=== PATIENT | male | born 1990 | race African-American/Black ===

== ENCOUNTER 2019-06-29 10:08 | Emergency (ER) | payer OTHER | END 2019-06-29 10:22 | disposition left against medical advice (07) | LOC: ER 10:08 | DX: K08.89 Other specified disorders of teeth and supporting structures (principal); Z53.21 Procedure and treatment not carried out due to patient leaving prior to being seen by health care provider ==

== ENCOUNTER 2019-12-06 12:29 | Emergency (ER) | payer OTHER ==
[~2019-12-06] VITALS: Ht 175.3 cm; Wt 74.8 kg
[2019-12-06 13:10] LABS: HEMATOCRIT 41.6 % (42.0-52.0); HEMOGLOBIN 13.9 gm/dL (14.0-18.0); MCH 30.2 pg (26.0-34.0); MCHC 33.3 g/dL (28.0-37.0); MCV 90.4 fL (80.0-100.0); PLATELET COUNT 326 thou/uL (150-400); RBC 4.61 mil/uL (4.50-6.00); RDW 13.9 % (10.5-14.5); WBC 9.9 thou/uL (4.0-11.0)
[2019-12-06 13:26] LABS: APTT 33.8 Seconds (24.5-32.8); D-DIMER 0.52 ug/mLFEU (0.19-0.50); PROTIME 10.4 Seconds (9.3-11.4)
[2019-12-06 13:31] LABS: ANION GAP 10 mmol/L (7-16); BUN 11 mg/dL (7-18); CALCIUM 9.2 mg/dL (8.5-10.1); CHLORIDE 100 mmol/L (98-107); CO2 27 mmol/L (21-32); CREATININE 1.4 mg/dL (0.7-1.3); GLUCOSE 126 mg/dL (74-106); SODIUM 137 mmol/L (136-145)
[2019-12-06 13:41] LABS: ALBUMIN 3.5 g/dL (3.4-5.0); LIPASE 134 U/L (73-393); SGOT 34 U/L (15-37); SGPT 59 U/L (30-65); TOTAL BILIRUBIN 0.3 mg/dL (0.2-1.0); TOTAL PROTEIN 7.7 g/dL (6.4-8.2); TROPONIN-I <0.06 ng/mL (<0.06)
[2019-12-06] MEDS ORDERED: PREDNISONE 20 M20 MG PO (14:51)
[2019-12-06 14:52] LABS: ABSOLUTE NEUTROPHILS 6.7 thou/uL (1.4-8.2); ATYPICAL LYMPHS 2 %
[2019-12-06 15:02] VITALS: BP 124/68
--- NOTE | 2019-12-06 23:00 | EKG ---
[facility] [place] [address] ELECTROCARDIOGRAM REPORT Name: JANA DIAZ Room #: [facility]#: [id number] Admission: 12/06/19 Attend Phys: Discharge: 12/06/19 Date of : 86 Report #: [id number] THIS REPORT FOR: cc: LOLA - [place] family physician/PCP FAM - No family physician/PCP Suresh Marrero MD [facility] THIS REPORT FOR: //name// [facility] ED Test Date: 2019-12-06 Test Time: 12:47:05 Pat Name: JANA DIAZ Department: Room: Gender: Fx Artist: : 1990 Requested By: Shaina Florez Order Number: [id number] MD: Suresh Marrero Measurements Intervals [place] Rate: 97 P: 69 IN: 130 QRS: 43 QRSD: 73 T: 35 QT: 321 QTc: 408 Interpretive Statements Sinus rhythm No significant abnormality No previous ECG available for comparison Electronically Signed On 12-06-2019 23:00:32 CDT by Suresh Marrero [email or web address] <ELECTRONICALLY SIGNED> By: Suresh Marrero MD, [facility] 12/06/19 2300 1247 [id number] Suresh Marrero MD, FACC /EPI
[2019-12-07] MEDS ORDERED: DOXYCYCLINE 10100 MG PO (14:12)
== END 2019-12-06 15:02 | disposition home or self-care (01) ==
LOC: ER 12:29
PROVIDERS: Physician Assistant
DX: R09.1 Pleurisy (principal); N28.9 Disorder of kidney and ureter, unspecified; J45.909 Unspecified asthma, uncomplicated; F17.210 Nicotine dependence, cigarettes, uncomplicated

== ENCOUNTER 2019-12-07 12:08 | Emergency (ER) | payer OTHER ==
[~2019-12-07] VITALS: Ht 175.3 cm; Wt 74.8 kg
[~2019-12-07 12:08] MED LIST: PREDNISONE 20 M20 MG PO
[2019-12-07 12:59] LABS: HEMATOCRIT 42.6 % (42.0-52.0); MCH 29.6 pg (26.0-34.0); MCHC 32.9 g/dL (28.0-37.0); PLATELET COUNT 327 thou/uL (150-400); RBC 4.74 mil/uL (4.50-6.00); RDW 13.6 % (10.5-14.5); WBC 8.9 thou/uL (4.0-11.0)
[2019-12-07 13:05] LABS: ANION GAP 8 mmol/L (7-16); BUN 11 mg/dL (7-18); CALCIUM 8.8 mg/dL (8.5-10.1); CHLORIDE 102 mmol/L (98-107); CO2 27 mmol/L (21-32); CREATININE 1.4 mg/dL (0.7-1.3); GLUCOSE 135 mg/dL (74-106); SODIUM 137 mmol/L (136-145)
[2019-12-07 13:10] LABS: TROPONIN-I <0.06 ng/mL (<0.06)
[2019-12-07 13:54] LABS: ABSOLUTE NEUTROPHILS 6.8 thou/uL (1.4-8.2)
[2019-12-07 13:55] LABS: ANISOCYTOSIS SLIGHT
[2019-12-07 14:09] LABS: URINE BILIRUBIN NEGATIVE (Negative); URINE BLOOD NEGATIVE (Negative); URINE CLARITY CLEAR; URINE COLOR YELLOW; URINE GLUCOSE-RANDOM* NEGATIVE (Negative); URINE KETONES NEGATIVE (Negative); URINE LEUKOCYTES-REFLEX NEGATIVE (Negative); URINE NITRITE-REFLEX NEGATIVE (Negative); URINE PROTEIN (DIPSTICK) NEGATIVE (Negative); URINE SPECIFIC GRAVITY 1.025 (1.005-1.035); URINE UROBILINOGEN 0.2 E.U./dl (0.2-1.0)
[2019-12-07] MEDS ORDERED: DOXYCYCLINE 10100 MG PO (14:12)
[2019-12-07 14:38] VITALS: BP 108/61
== END 2019-12-07 14:38 | disposition home or self-care (01) ==
LOC: ER 12:08
PROVIDERS: Emergency Medicine
DX: R59.0 Localized enlarged lymph nodes (principal); L02.211 Cutaneous abscess of abdominal wall; J45.909 Unspecified asthma, uncomplicated; F17.210 Nicotine dependence, cigarettes, uncomplicated; Z79.899 Other long term (current) drug therapy

== ENCOUNTER 2020-04-08 12:06 | Emergency (ER) | payer OTHER ==
[~2020-04-08] VITALS: Ht 175.3 cm; Wt 63.5 kg
[~2020-04-08 12:06] MED LIST changes: +DOXYCYCLINE 10100 MG PO
[2020-04-08 12:32] LABS: URINE BILIRUBIN NEGATIVE (Negative); URINE BLOOD 1+ (Negative); URINE CLARITY CLOUDY; URINE COLOR YELLOW; URINE GLUCOSE-RANDOM* NEGATIVE (Negative); URINE KETONES NEGATIVE (Negative); URINE NITRITE-REFLEX NEGATIVE (Negative); URINE PROTEIN (DIPSTICK) NEGATIVE (Negative); URINE UROBILINOGEN 0.2 E.U./dl (0.2-1.0)
[2020-04-08 12:34] LABS: URINE LEUKOCYTES-REFLEX 3+ (Negative)
[2020-04-08 12:48] LABS: CASTS None Seen /LPF (None Seen); CRYSTALS None Seen /LPF (None Seen); SQUAMOUS 0-3 Few /LPF (0-3); URINE WBC-REFLEX >25 Many /HPF (0-5)
[2020-04-08 12:49] LABS: URINE RBC 3-10 Few /HPF (0-2)
[2020-04-08 13:23] LABS: ABSOLUTE NEUTROPHILS 8.2 thou/uL (1.4-8.2); BASOPHILS 0.9 % (0.0-2.0); EOSINOPHILS 3.1 % (0.0-3.0); HEMOGLOBIN 14.7 gm/dL (14.0-18.0); LYMPHOCYTES 20.6 % (24.0-44.0); MCH 29.1 pg (26.0-34.0); MCHC 32.7 g/dL (28.0-37.0); MCV 89.2 fL (80.0-100.0); MONOCYTES 7.4 % (1.0-8.0); PLATELET COUNT 432 thou/uL (150-400); RBC 5.05 mil/uL (4.50-6.00); WBC 12.1 thou/uL (4.0-11.0)
[2020-04-08 13:29] LABS: CALCIUM 8.9 mg/dL (8.5-10.1); CREATININE 1.1 mg/dL (0.7-1.3)
[2020-04-08 13:35] LABS: ALBUMIN 3.2 g/dL (3.4-5.0); TOTAL BILIRUBIN 0.3 mg/dL (0.2-1.0)
[2020-04-08 15:57] VITALS: BP 112/69
[2020-04-08] MEDS ORDERED: ULTRAM 50MG TAB50 MG PO (15:57)
[2020-04-08] MEDS ORDERED: BACTRIM DS TAB1 EACH PO (15:57)
[2020-04-08] MEDS ORDERED: MIRALAX119 GM PO (15:57)
== END 2020-04-08 16:03 | disposition home or self-care (01) ==
LOC: ER 12:06
PROVIDERS: Physician Assistant
DX: N30.90 Cystitis, unspecified without hematuria (principal); N41.9 Inflammatory disease of prostate, unspecified; J45.909 Unspecified asthma, uncomplicated; F17.210 Nicotine dependence, cigarettes, uncomplicated